=== PATIENT | female | born 1965 | race Caucasian/White ===

== ENCOUNTER → 2016-10-06 | Outpatient (CLI) | payer OTHER ==
[~2016-10-06] MED LIST: ALPR0.25 PO; LAMO25TA PO
--- NOTE | 2016-10-07 14:15 | RADRPT ---
PROCEDURE: Gallium 67 whole body scan CLINICAL INDICATION: 51 -year-old patient with fever. TECHNIQUE: Following the intravenous injection of 8.2 mCi of gallium 67 citrate, whole body anteri or and posterior planar images were obtained at 24 hours post injection. COMPARISON: No prior gallium scans. MRI of the right shoulder dated September 10, 2015. FINDINGS: No abnormal areas of increased activity are seen in the study, including head and neck region, chest (including both lungs), abdomen, pelvis and upper and lower extremities bilaterally. Physiologic activity seen in the liver, skeleton and bowel. IMPRESSION: No abnormal areas of increased activity in the lungs bilaterally and elsewhere in the remainder of t he body. RPTAT: HH .Eliza Wagoner MD, MD Date Time Electronically viewed and signed by .Eliza Wagoner MD, on 10/07/2016 14:15 .L/
== END | disposition home or self-care (01) ==
LOC: NUC 09:54
PROVIDERS: ATTEND Internal Medicine Pulmonary Disease
DX: D86.9 Sarcoidosis, unspecified (principal)
CPT/HCPCS: 78806; A9556